=== PATIENT | female | born 1970 | race Hispanic/Latino ===

== ENCOUNTER 2017-01-25 17:27 | Emergency (ER) | payer SELFPAY ==
[~2017-01-25] VITALS: Ht 165.1 cm; Wt 81.8 kg
[~2017-01-25 17:27] MED LIST: DOCU-41 PO; IBUP-1827 PO; OXYC1TAB24 PO
[2017-01-25 17:43] VITALS: BP 135/85; PULSE 158; RESP 16; O2SAT 100
--- NOTE | 2017-01-25 17:53 | ED.REPORT ---
HPI-General Illness Date of Service Jan 25, 2017 ED Provider: Dr. Ty Daniels MD The patient is a 46 year old female presents to the ED via EMS with worsening heart palpitations that began this afternoon. Patient reports that she has been experiencing persistent chest pressure/racing heart for the past week that became increasingly worse this afternoon. Associated symptoms include chest discomfort, SOB, right arm "heaviness" and two episodes of lightheadedness. She denies any similar previous episodes. No known cardiac history. Nursing Notes Stated Complaint: CHEST DISCOMFORT Chief Complaint: Chest Pain Nursing Notes Reviewed: Yes Allergies: Coded Allergies: No Known Allergies (Verified , 07/16/06) Scheduled Aspirin Chew (Aspirin Chew) 81 Mg Chew 81 MG PO DAILY Metoprolol Succinate ER (Metoprolol Succinate ER) 25 Mg Tab.er.24h 25 MG PO DAILY Scheduled PRN Docusate Sodium (Colace) 100 Mg Capsule 100 MG PO BID PRN PRN For Constipation Ibuprofen (Ibuprofen) 600 Mg Tablet 600 MG PO Q6H PRN PRN For Mild Pain oxyCODONE-Acetaminophen 5-325 mg (oxyCODONE-Acetaminophen 5-325 mg) 1 Tab Tablet 1-2 TAB PO Q4H PRN PRN For Moderate Pain General Time Seen by MD: 17:53 Chief Complaint Other (Heart palpitiations) Hx Obtained From: Patient Arrived By: Ambulance Sudden in Onset?: No Onset Occurred: 1 - 4 hours ago Symptom Duration: Since onset Location: : Chest Quality: Pressure Radiation: : Does not radiate Severity: Current: Moderate Severity: Maximum: Moderate Associated with: Reports: Chest pain, Shortness of breath Pertinent Negative: Pt denies other symptoms Recent Healthcare: No recent doctor visit, No recent hospitalization Similar Sx Previous: No Past Medical History Past Medical History None reported. Past Surgical History Hysterectomy Smoking History Never Smoker Social History Other Social History: Good social support, Local resident Ambulatory Status Independent Review of Systems + right arm heavy and weak Full Review of Systems Respiratory: Reports: Shortness of breath Cardiovascular: Reports: Chest pain, Palpitations Neurologic: Reports: Lightheaded Complete sys rev & neg: except as marked. Physical Exam Vital Signs Vital Signs Date Time Temp Pulse Resp B/P Pulse Ox O2 Delivery O2 Flow Rate FiO2 01/25/17 20:42 92 20 137/85 99 Room Air 01/25/17 19:27 101 23 131/79 100 Room Air 01/25/17 18:38 145 20 131/82 100 Room Air 01/25/17 17:43 38 158 16 135/85 100 Room Air Neck: Supple, Non-tender, Full range of motion Extremities: Vascular intact, Neuro intact, No swelling, No tenderness Skin: Warm, Dry, No cyanosis Neurologic: Alert, Oriented, Nonfocal Psychiatric: Mood/affect normal, Behavior normal, Normal thought content General/Constitutional: Awake, Alert, No acute distress Head / Eyes: Atraumatic, Normocephalic, PERRL Respiratory / Chest: Atraumatic, Breath sounds NL, Breath sounds = bilat, No respiratory distress Cardiovascular: Regular rhythm, Heart sounds NL, No gallop, No murmurs, No rubs , Pulses = bilaterally (strong pulses distally) Heart Rate / Rhythm: Positive: Tachycardia Abdomen: Atraumatic, Soft, Non-tender, No distention Interpretation & Diagnostics Lab Results Interpretation Result Diagram: 01/25/17 1754 01/25/17 1754 Test 01/25/17 17:54 01/25/17 18:05 White Blood Count 9.1th/mm3 (3.8-10.1) Red Blood Count 5.11mil/mm3 (3.90-5.20) Hemoglobin 13.9g/dL (12.0-15.6) Hematocrit 41.5% (35.0-46.0) Mean Corpuscular Volume 81.2fL (81-100) Mean Corpuscular Hemoglobin 27.2pg (27.0-35.0) Mean Corpuscular Hemoglobin Concent 33.5% (32.0-37.0) Red Cell Distribution Width 14.7% (12.3-15.4) Platelet Count 262bil/L (150-400) Neutrophils (%) (Auto) 45.1% (40-74) Lymphocytes (%) (Auto) 39.1% (14-46) Monocytes (%) (Auto) 8.9% (4-12) Eosinophils (%) (Auto) 6.4% (0-5) Basophils (%) (Auto) 0.3% (0-3) Activated Partial Thromboplast Time 28.2sec (22.8-33.0) D-Dimer 1.04mg/L FEU (<0.50) Sodium Level 140mEq/L (134-144) Potassium Level 3.1mEq/L (3.5-5.2) Chloride Level 102mEq/L (97-108) Carbon Dioxide Level 21mmol/L (18-29) Blood Urea Nitrogen 18mg/dL (6-24) Creatinine 0.85mg/dL (0.57-1.00) Estimat Glomerular Filtration Rate 104mL/min (>59) Glucose Level 121mg/dL (60-99) Calcium Level 8.5mg/dL (8.5-10.1) Magnesium Level 1.9mg/dL (1.6-2.6) Total Bilirubin 0.2mg/dL (0.0-1.2) Aspartate Amino Transf (AST/SGOT) 16U/L (0-50) Alanine Aminotransferase (ALT/SGPT) 21U/L (0-32) Alkaline Phosphatase 65U/L (25-150) Troponin T < 0.010ug/L (0.0-0.011) Total Protein 7.5g/dL (6.4-8.4) Albumin 4.1g/dL (3.4-5.0) Thyroid Stimulating Hormone (TSH) 4.010uIU/mL (0.450-4.500) Human Chorionic Gonadotropin, Qual Negative (Negative) ECG Interpretation ECG Interpretation: Assumed tachycardia Rate 158 bpm Normal axis Normal intervals Diffuse St depression No prior for comparison Time: 17:59 Interpreted by: ED physician ECG Interpretation: Sinus rhythm Rate [address] segment changes No T wave abnormalities No condution abnormalities Compared to prior - now in sinus Time: 19:37 Interpreted by: ED physician X-Ray Chest Interpretation Chest Xray Interpretation: IMPRESSION: No acute cardiopulmonary findings. Dictated by: Amy Small M.D. on 01/25/2017 at 18:11 Interpretation / Wet Read by: Interpret - Radiologist CT Chest Interpretation IMPRESSION: No acute pulmonary embolus. Dictated by: Amy Small M.D. on 01/25/2017 at 20:14 Study type: CT pulm angiogram Interpretation / Wet Read by: Interpret - Radiologist Procedures CARDIOVERSION Adenosine (1840) Indication: tachycardia Time-out performed Consent from patient Placed on secured entrance monitor Hand-hygiene observed No complications Patient tolerates Tachycardic following administration of medication Re-Eval/Medical Decision Med Decision/Clinical Course In summary, the patient is a generally healthy 46-year-old female who presents to the emergency department complaining of one-week of racing heart, palpitations, mild lightheadedness and chest pressure. Here in the emergency department the patient is noted to have a heart rate of 160 though is hemodynamically stable. She was initially documented to have a temperature of 38 and told this is an error and on repeat testing she is noted to be afebrile. She denies any fevers at home EKG Tachycardia Rate 158 bpm Normal axis Normal intervals Diffuse St depression No prior for comparison EKG # 2 Sinus rhythm Rate [address] segment changes No T wave abnormalities No condution abnormalities Compared to prior - now in sinus Chest IMPRESSION: No acute cardiopulmonary findings. Laboratory studies notable as below: CBC unremarkable CMP unremarkable except K+ - 3.1 Trop negative TSH norm negative D-dimer positive CT angio IMPRESSION: No acute pulmonary embolus. On arrival patient is extremely tachycardic with a heart rate in the 160s. EKG demonstrates very regular tachycardia at out any obvious P waves before every QRS complex. My suspicion is that this represents a 2-1 atrial flutter. EKG was reviewed with cardiology and they agreed though felt that we could not definitively rule out a supraventricular tachycardia. In consultation with cardiology I opted to administer adenosine 6 and then 12 mg. This had little to no effect on the patient's rhythm and was not diagnostic in revealing an underlying P wave or sawtooth morphology. Therefore, administered a fluid bolus in addition to IV and oral metoprolol. Shortly thereafter, the patient was noted to be in what appeared to be sinus rhythm on the monitor. Repeat EKG at that time demonstrated sinus rhythm. Patient reported feeling dramatically better. Cause of the patient's tachycardia remains unclear. In reviewing her rhythm strip it is not obvious what her underlying rhythm was prior to converting dye suspect that she was probably in a 2:1 atrial flutter. Patient was further discussed with radiology and felt to be appropriate for discharge. She will be started on metoprolol 25 mg daily and is advised to take a baby aspirin daily. She will follow-up in the cardiology clinic on an outpatient basis. She is to return immediately for any recurrent episodes of tachycardia, lightheadedness, chest discomfort. Given the patient's elevated d-dimer I did opt to obtain a CT angiogram which ruled out acute pulmonary embolism. She was transferred in stable condition. Time of Eval: 18:39 Re-Evaluation/Progress Note: Tachycardic upon re-eval. Will administer adenosine in attempt to cardiovert. Time of Eval: 19:30 Patient Status: Condition improved Re-Evaluation/Progress Note: Monitor is suggestive of Sinus, will repeart EKG Time of Eval: 19:41 Re-Evaluation/Progress Note: Admission no longer indicated. All questions are addressed. Consultation #1: Referral / Consult Name: Maurice Isaac MD Consulted With: Cardiology Call Returned at: 18:13 [employer] Equipment Tender: Will see patient, Agrees with eval, Agrees with plan, Accepts admit Note: Discussed pt conditon. Suspects 2-1 atrial flutter recommends adenosine - if ineffective, give IV metoprolol and Heparin drip Admit to medicine for echocardiogram and electrical cardioversion Consultation #2: Referral / Consult Name: Aaron Yanez MD Consulted With: Hospitalist Call Returned at: 19:10 [employer] Tender: Will see patient, Agrees with eval, Agrees with plan, Accepts admit Note: Discussed pt condition. Will admit. Consultation #3: Referral / Consult Name: Maurice Isaac MD Consulted With: Cardiology Call Returned at: 19:42 [employer] Tender: Agrees with eval, Agrees with plan Note: Admission is no longer indicated Consultation #4: Referral / Consult Name: Aaron Yanez MD Consulted With: Hospitalist Call Returned at: 19:42 [employer] Tender: Agrees with eval, Agrees with plan Note: Admission no loner indicated. Counseled Regarding: Diagnosis, Lab results, Need for follow-up, When/why to return to ED Discharge & Departure Primary Impression: Atrial flutter with rapid ventricular response Additional Impressions: Lightheadedness Chest pressure Disposition: Home Discharge Condition All VS Reviewed: Yes Condition: Stable Patient Instructions: Atrial Flutter (ED), Heart Palpitations (ED), Metoprolol (By mouth) Additional Instructions: Thank you for seeking care at emergency room. It is difficult for us to make definitive diagnoses in the ED but we believe that you experienced atrial flutter which is an abnormal heart rhythm. You were able to return to a normal heart rhythm with the Metoprolol treatment. You will be discharged with a prescription for baby aspirin daily and 25mg of metoprolol (b.i.d). Please take as directed. You should follow-up with cardiology in the next week for further evaluation. You should return to the ED immediately if you develop chest pain, rapid heart rate, cough, shortness of breath, lightheadedness, weakness or any other concerning signs or symptoms. Thank you for letting us partake in your care today. [employer] Mi por la bsqueda de atencin en urgencias. Es difcil para nosotros hacer diagnsticos definitivos en el ED, ghulam creemos que experimentaron flutter auricular que es un ritmo cardaco anormal. Que haya podido volver a un ritmo cardaco normal con el tratamiento de Metoprolol. Usted ser dado de zeinab con laura receta de aspirina de dominga diaria y 25mg de metoprolol (b.i.d). Por favor tome chidi se indica. Debe seguimiento de Cardiologa en la prxima semana para la evaluacin adicional. Usted debe regresar a la ED inmediatamente si desarrolla dolor en el pecho, pulso rpido, tos, dificultad para respirar, mareos, debilidad o cualquier otro relativo a las ruben o sntomas. Mi por dejarnos participar en billy atencin hoy en da. Referrals: Marvin Gipson MD (PCP) Maurice Isaac MD Crit Care Except Billable Proc Time Spent: 105-134 minutes Services Performed: Patient management by me, Time spent at bedside, Reviewing test results, Reviewing imaging, Discussing patient care, Documentation in record Critical Care Notes: Management of cardiac arrhythmia/tachyarrhythmia with associated symptoms of lightheadedness/chest pressure, administration of multiple IV cardiac medications and multiple discussions with cardiology. Scribe Attestation Portions of this note were transcribed by Vickie Barger. I, Dr. Daniels, personally performed the history, physical exam and medical decision-making; I reviewed and confirmed the accuracy of the information in the transcribed note. Signed by: Vickie Barger, 01/25/17. copies to: Maurice Isaac MD; Marvin Gipson MD, Beck O MD Jan 25, 2017 17:53 VICKIE BARGER Jan 25, 2017 18:04
[2017-01-25 18:03] LABS: BASOPHILS % (AUTO) 0.3 % (0-3); EOSINOPHILS % (AUTO) 6.4 % (0-5); MONOCYTES % (AUTO) 8.9 % (4-12); Mean Corpuscular Hemoglobin 27.2 pg (27.0-35.0); Mean Corpuscular Volume 81.2 fL (81-100); NEUTROPHILS % (AUTO) 45.1 % (40-74); Platelet Count 262 bil/L (150-400)
[2017-01-25] MEDS ORDERED: Adenosine 3 mg/mL 2 mL Inj IVPUSH ONE (18:05)
--- NOTE | 2017-01-25 18:12 | DRSVH ---
PROCEDURE: X-RAY CHEST ONE VIEW, PORTABLE ([id number]) INDICATIONS: CHEST PAIN TECHNIQUE: One view of the chest was acquired. COMPARISON: None. FINDINGS: Surgical changes and devices: None. Lungs and pleura: No pleural effusions or pneumothorax. Lungs are clear. Mediastinum: Mediastinal contours appear normal. Heart size is normal. Bones and chest wall: No suspicious bony lesions. Overlying soft tissues appear unremarkable. IMPRESSION: No acute cardiopulmonary findings. Dictated by: Amy Small M.D. on 01/25/2017 at 18:11 Approved by: Amy Small M.D. on 01/25/2017 at 18:11
[2017-01-25 18:19] LABS: Magnesium 1.9 mg/dL (1.6-2.6)
[2017-01-25 18:28] LABS: TROPONIN T < 0.010 ug/L (0.0-0.011)
[2017-01-25 18:38] VITALS: BP 131/82; PULSE 145; RESP 20; O2SAT 100
[2017-01-25] MEDS ORDERED: Heparin 5,000 Unit/mL Inj IVPUSH ONE (18:50)
[2017-01-25] MEDS ORDERED: MeTOProlol 1 mg/mL 5 mL Inj IVPUSH SCH (18:50)
[2017-01-25] MEDS ORDERED: Alum-Mag Hydrox-Simeth 30 mL Suspension PO PRN (18:50)
[2017-01-25] MEDS ORDERED: Heparin 25K Unit/500mL 0.45 NS 25,000 UNIT in IV Premix 1 EACH IV ONE (18:50)
[2017-01-25] MEDS ORDERED: Ondansetron 2 mg/mL 2 mL Inj IVPUSH PRN (18:50)
[2017-01-25 19:27] VITALS: BP 131/79; PULSE 101; RESP 23; O2SAT 100
[2017-01-25] MEDS ORDERED: ASPI81TA3 PO (19:42)
[2017-01-25] MEDS ORDERED: METO-386 PO (19:42)
[2017-01-25] MEDS ORDERED: 0.9% Sodium Chloride 1,000 ML IV ONE (19:48)
--- NOTE | 2017-01-25 20:20 | DRSVH ---
PROCEDURE: CT ANGIO CHEST PULMONARY EMBOLISM ([id number]) INDICATIONS: sob, dimer elevated TECHNIQUE: After the administration of intravenous contrast, 2 mm thick sections acquired from the pulmonary api rocío to the posterior costophrenic angles. 3-dimensional maximum intensity projection (MIP) coronal a nd sagittal reformats were then acquired through the thorax. For radiation dose reduction, the follo wing was used: automated exposure control, adjustment of mA and/or kV according to patient size. COMPARISON: None. FINDINGS: Image quality: Excellent. Pulmonary arteries: Pulmonary arteries are normal in size, and demonstrate no intraluminal filling d efects to suggest central pulmonary embolism. Lungs and pleura: Lungs are clear. No pleural effusions or pneumothorax. Central and peripheral ai rways are patent. Mediastinum: Heart size is normal, without pericardial effusion. No mediastinal or hilar adenopathy . Thoracic aorta is normal in caliber and enhancement. Esophagus is normal in caliber, without hiat al hernia. Bones and chest wall: No suspicious bony lesions. Ribs and thoracic spine appear intact throughout. Thyroid gland is unremarkable. No axillary or supraclavicular adenopathy. Abdomen: Visualized upper abdominal solid organs appear normal in the early arterial phase of enhanc ement. IMPRESSION: No acute pulmonary embolus. Dictated by: Amy Small M.D. on 01/25/2017 at 20:14 Approved by: Amy Small M.D. on 01/25/2017 at 20:19
[2017-01-25 20:42] VITALS: BP 137/85; PULSE 92; RESP 20; O2SAT 99
== END 2017-01-25 20:42 | disposition home or self-care (01) ==
LOC: EDBD 17:27 → SED 17:27 → EDUNIT# 17:27 → SED 20:42
DX: I48.92 Unspecified atrial flutter (principal); R42 Dizziness and giddiness; R07.89 Other chest pain; Z90.710 Acquired absence of both cervix and uterus; Z79.82 Long term (current) use of aspirin
CPT/HCPCS: 36415; 71010; 71275; 80053; 83735; 84443; 84484; 84703; 85025; 85378; 85730; 93005; 96361; 96374; 96375; 99291; 99292; J0153; Q9967